=== PATIENT | female | born 1940 | race Caucasian/White ===

== ENCOUNTER → 2017-08-07 | Outpatient (RCR) | payer MEDICARE, BC ==
[~2017-08-07] MED LIST: LIPITOR20 MG PO; [UNRECOGNIZED DRUG - REMARK]
== END ==
LOC: PT 08-03 12:43
PROVIDERS: ATTEND Otolaryngology Otology & Neurotology
DX: R42 Dizziness and giddiness (principal); R26.9 Unspecified abnormalities of gait and mobility
CPT/HCPCS: 97110; 97162; G8990; G8991

== ENCOUNTER 2017-08-31 12:53 | Outpatient (RCR) | payer MEDICARE, BC | END 2017-09-07 | LOC: PT 12:53 | PROVIDERS: ATTEND Otolaryngology Otology & Neurotology | DX: R42 Dizziness and giddiness (principal); R26.9 Unspecified abnormalities of gait and mobility | CPT/HCPCS: 97110; 97112 ×5; G8991; G8992 ==